=== PATIENT | female | born 1980 | race Caucasian/White ===

== ENCOUNTER 2017-02-19 14:30 | Emergency (ER) | payer OTHER ==
[~2017-02-19] VITALS: Ht 160 cm; Wt 93.0 kg
[2017-02-19 15:55] LABS: BASOPHILS % 0.5 % (0.0-2.0); EOSINOPHILS % 0.2 % (0.0-5.0); HEMATOCRIT. 35.6 % (36.0-48.0); HEMOGLOBIN. 11.7 g/dL (12.0-16.0); LYMPHOCYTES % 17.7 % (20.0-50.0); MEAN CORPUSCULAR HEMOGLOBIN 28.5 pg (28.0-32.0); MEAN CORPUSCULAR VOLUME 86.8 fL (81.0-99.0); MEAN PLATELET VOLUME 8.3 fl (7.4-10.4); MONOCYTES % 5.7 % (2.0-8.0); NEUTROPHILS % 75.9 % (40.0-76.0); PLATELET 194 x1000/uL (130-400); RED BLOOD CELL COUNT 4.11 mill/uL (4.2-5.4); RED CELL DISTRIBUTION WIDTH 14.5 % (11.6-14.6)
[2017-02-19] MEDS ORDERED: HYDROCODONE/ACETAMINOPHEN 5/325MG TABLET PO ONE (17:15)
[2017-02-19] MEDS ORDERED: TETANUS, DIPHTHERIA, PERTUSSIS VAC/PF 0.5ML (>7YR OLD) IM ONE (18:15)
[2017-02-19] MEDS ORDERED: KETOROLAC 60MG/2ML VIAL IM ONE (19:00)
[2017-02-19 19:02] LABS: HCG SCREEN NEGATIVE
[2017-02-19 19:50] VITALS: BP 123/73
== END 2017-02-19 21:00 | disposition home or self-care (01) ==
LOC: ER 14:48
DX: S30.1XXA Contusion of abdominal wall, initial encounter (principal); N83.202 Unspecified ovarian cyst, left side; V43.52XA Car driver injured in collision with other type car in traffic accident, initial encounter; Y93.89 Activity, other specified; Y92.89 Other specified places as the place of occurrence of the external cause; Z90.49 Acquired absence of other specified parts of digestive tract
CPT/HCPCS: 36415; 71010; 74176; 84703; 85025; 90471; 90715; 96372; 99285; J1885